=== PATIENT | female | born 1995 | race Caucasian/White ===

== ENCOUNTER 2020-11-09 16:38 | Emergency (ER) | payer OTHER, SELFPAY ==
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
[2020-11-09 16:46] VITALS: BP 118/67; PULSE 74; RESP 18; TEMP 36.4; O2SAT 100; O2SAT 98; BMI 20.5
--- NOTE | 2020-11-09 17:11 | PC.NURSE ---
HPD and photographer news at bedside. Pending primary eval
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
[2020-11-09 19:55] LABS: Glucose Urine UA NEG (NEG); Leukocyte Esterase Urine 1+ (NEG); Nitrite Urine NEG (NEG); Specific Gravity - Urine 1.025 (1.005-1.025); UACC Culture Trigger YES; Urine Blood NEG (NEG); Urine Ketones 5 MG/DL (NEG); Urine Protein NEG (NEG-TRACE)
[2020-11-09 20:03] LABS: Appearance Urine HAZY; Color Urine YELLOW
[2020-11-09 20:04] LABS: Bacteria Urine 4+ /LPF; Mucus Urine 1+ /LPF; Squamous Epithelial Cell Urine 1+ /LPF; UPreg QC Valid YES; Urine Pregnancy NEGATIVE (NEGATIVE); WBC Urine 30-49 /HPF (0-4)
[2020-11-09 20:13] LABS: Amphetamine Screen Urine Not Detected (Not Detect); Barbiturates, Urine Not Detected (Not Detect); Benzodiazepines Screen Urine POSITIVE (Not Detect); Cannabinoid Screen Urine POSITIVE (Not Detect); Cocaine Screen Urine POSITIVE (Not Detect); Opiate Screen Urine POSITIVE (Not Detect); Phencyclidine Screen Urine Not Detected (Not Detect)
[2020-11-09 20:16] LABS: MANUAL DIFF FLAG NO
[2020-11-09 20:17] LABS: Basophils Percent Auto 0.5 % (0-2); Eosinophils Absolute Auto 0.3 X10*3/uL (0.0-0.4); Eosinophils Percent Auto 3.4 % (0-4); Hematocrit 35.3 % (37-47); Hemoglobin 11.1 g/dl (12.0-16.0); Imm Gran Abs Auto 0.01 X10*3/uL (0.00-0.03); Imm Gran Pct Auto 0.1 % (0.0-0.4); Lymphocytes Absolute Auto 2.8 X10*3/uL (1.2-4.9); Lymphocytes Percent Auto 33.1 % (20-40); Mean Corpuscular HGB Conc 31.4 g/dl (31.0-35.0); Mean Corpuscular Hemoglobin 25.9 pg (27.0-33.0); Mean Corpuscular Volume 82.5 fL (80-98); Monocytes Absolute Auto 0.4 X10*3/uL (0.1-1.2); Monocytes Percent Auto 5.1 % (2-11); Neutrophils Percent Auto 57.8 % (45-73); Platelet Count 311 X10*3/uL (160-400); Red Blood Count 4.28 X10*6/uL (4.20-5.50); Red Cell Distribution Width 15.4 % (11.0-16.0); White Blood Count 8.6 X10*3/uL (4.8-10.8)
[2020-11-09 20:31] VITALS: BP 120/76; PULSE 75; RESP 18; TEMP 36.6; O2SAT 100
[2020-11-09 20:40] LABS: Alanine Aminotransferase 13 U/L (0-31); Albumin Level 4.1 g/dL (3.5-5.0); Alkaline Phosphatase 98 U/L (39-117); Anion Gap 13 (12-20); Aspartate Amino Transferase 14 U/L (5-31); Bilirubin Direct < 0.2 mg/dL (0.0-0.5); Bilirubin Total 0.3 mg/dL (0.0-1.0); Blood Urea Nitrogen 15 mg/dL (9-16); Calcium 9.2 mg/dL (8.4-10.2); Carbon Dioxide 26 mmol/L (22-29); Chloride 103 mmol/L (96-108); Creatinine Clr Calc Pharmacy 89.4; Estimated Glomerular Filt Rate > 60; Glucose Random 144 mg/dL (60-115); Lipase 5 U/L (8-78); Potassium 3.8 mmol/L (3.3-5.1); Sodium 138 mmol/L (135-145)
[2020-11-09 20:57] LABS: HIV AB/AG Nonreactive (Nonreactive)
[2020-11-09] MEDS: cefTRIAXone sodium 500 MG, Lidocaine HCl 1 % MPF 1 ML IM (21:23)
[2020-11-09] MEDS: levonorgestreL 1.5 MG TABLET PO (21:23)
[2020-11-09] MEDS: Dicyclomine HCl 10 MG CAPSULE 20 MG PO (21:24)
[2020-11-09 21:25] VITALS: BP 115/63; PULSE 67
[2020-11-09] MEDS: Azithromycin 500 MG TABLET 1000 MG PO (21:25)
[2020-11-09] MEDS: cloNIDine HCL 0.1 MG TABLET PO (21:25)
[2020-11-09] MEDS: LORazepam 1 MG TABLET 2 MG PO (21:25)
[2020-11-09] MEDS: metroNIDAZOLE 500 MG TABLET 2000 MG PO (21:27)
[2020-11-09] MEDS: Penicillin G Benzathine 2,400,000 UNIT/4 ML SYRINGE 2400000 UNIT IM (21:28)
[2020-11-09] MEDS: Post Exposure Medication Kit 1 KIT PO (21:29)
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
[2020-11-09] MEDS: Hepatitis B Imm Globulin 5 ML VIAL 3.3 ML IM (21:49)
[2020-11-09 22:20] VITALS: BP 126/56; PULSE 67; RESP 16; O2SAT 99
[2020-11-10 08:49] LABS: HBS Num1 258.45 mIU/mL (0-7.99); Hepatitis A Antibody IgM 0.31 Index (0-0.79); ~HepC Num1 14.42 S/CO (0.00-0.79); ~Hepatitis A Antibody IgM Nonreactive (Nonreactive); ~Hepatitis B Surface Antibody REACTIVE (Nonreactive); ~Hepatitis C Antibody Reactive (Nonreactive)
[2020-11-10 08:52] LABS: CT PCR DETECTED (Not Detect.); NG PCR DETECTED (Not Detect.)
[2020-11-10 09:02] LABS: Syphilis Screen Nonreactive (Nonreactive)
[2020-11-10 09:21] LABS: BV Int Neg Control Negative (Negative); BV Int Pos Control Positive (Positive)
[2020-11-10 09:53] LABS: HBsAGNum1 0.17 S/CO (0.00-0.99); HIV Num 1 0.05 S/CO (0.00-0.99); Hepatitis B Surface Antigen Negative (Negative)
[2020-11-10 11:08] LABS: HBc Num1 8.99 S/CO (0.00-0.79)
[2020-11-10 11:11] LABS: HBc Num2 10.07 S/CO; HBc Num3 10.17 S/CO; Hepatitis B Core Antibody Reactive (Nonreactive)
[2020-11-11 09:41] LABS: Hepatitis B Core Antibody IgM NON-REACTIVE (NON-REACTIVE)
== END 2020-11-09 22:42 ==
PROVIDERS: Nurse Practitioner Family; Emergency Provider Emergency Medicine
DX: T76.21XA Adult sexual abuse, suspected, initial encounter (principal); X58.XXXA Exposure to other specified factors, initial encounter; F19.10 Other psychoactive substance abuse, uncomplicated; Z11.3 Encounter for screening for infections with a predominantly sexual mode of transmission; Z20.5 Contact with and (suspected) exposure to viral hepatitis; I10 Essential (primary) hypertension
CPT/HCPCS: 36415; 70140; 70360; 80048; 80076; 80307; 81001; 81003; 81025; 83690; 85025; 86704; 86705; 86706; 86709; 86780; 86803; 87086; 87088; 87186; 87340; 87389; 87480; 87491; 87510; 87591; 87660; 90371; 90471; 90715; 96372; 99284; 99285; J0561; J0696

== ENCOUNTER 2021-03-11 19:03 | Emergency (ER) | payer OTHER, SELFPAY ==
[2021-03-11 19:22] VITALS: BP 173/83; PULSE 111; RESP 18; TEMP 36.9; O2SAT 100; BMI 20.5
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
[2021-03-11] MEDS: Ibuprofen 600 MG TABLET PO (22:58)
[2021-03-11] MEDS: cephALEXin 500 MG CAPSULE PO (22:58)
[2021-03-11] MEDS: Lidocaine HCl 2 % MPF 5 ML VIAL 10 ML SUBCUT (22:59)
[2021-03-11 23:02] VITALS: BP 137/77; PULSE 85; RESP 17; TEMP 37; O2SAT 98
== END 2021-03-11 23:24 | disposition home or self-care (01) ==
PROVIDERS: Emergency Provider Internal Medicine
DX: L02.415 Cutaneous abscess of right lower limb (principal); I10 Essential (primary) hypertension; F11.10 Opioid abuse, uncomplicated; Z79.899 Other long term (current) drug therapy
CPT/HCPCS: 10060; 99284

== ENCOUNTER 2021-03-14 18:05 | Emergency (ER) | payer OTHER, SELFPAY ==
[2021-03-14 18:26] VITALS: BP 145/78; PULSE 90; RESP 18; TEMP 36.6; O2SAT 100; BMI 20.5
--- NOTE | 2021-03-14 19:47 | PC.NURSE ---
PT NOT IN ROOM FOR EVAL. LWT.
== END 2021-03-14 19:50 | disposition left against medical advice (07) ==
PROVIDERS: Emergency Provider Emergency Medicine
DX: Z48.00 Encounter for change or removal of nonsurgical wound dressing (principal)
CPT/HCPCS: 99281; 99283

== ENCOUNTER 2021-06-09 12:55 | Emergency (ER) | payer OTHER, SELFPAY ==
--- NOTE | 2021-06-09 13:22 | PC.NURSE ---
[facility] staff assisted patient in rinsing eyes with milk. Registration at front office manager report that patient left shortly afterwards.
== END 2021-06-09 13:24 | disposition left against medical advice (07) ==
PROVIDERS: Emergency Provider Emergency Medicine
DX: H57.13 Ocular pain, bilateral (principal)

== ENCOUNTER 2021-06-25 00:32 | Emergency (ER) | payer OTHER, SELFPAY ==
[2021-06-25 00:49] VITALS: BP 155/105; PULSE 120; RESP 16; TEMP 36.4; O2SAT 100; BMI 21.2
== END 2021-06-25 01:20 | disposition left against medical advice (07) ==
PROVIDERS: Emergency Provider Emergency Medicine
DX: K08.89 Other specified disorders of teeth and supporting structures (principal)
CPT/HCPCS: 99281; 99282

== ENCOUNTER 2021-11-13 18:28 | Emergency (ER) | payer OTHER, SELFPAY ==
--- NOTE | ~2021-11-13 | XR_ITS ---
EXAMINATION: XR HIP, RIGHT CLINICAL INFORMATION: Fell 2 hours ago with inability to move leg COMPARISON: None TECHNIQUE: Single view pelvis with 4 additional views of the right hip. FINDINGS: Bones and soft tissues are normal. No fracture. Alignment is anatomic. Hip joint space is maintained. No pelvic fracture is seen. XR/XR hip RT min 2V IMPRESSION: Normal right hip. Normal left hip.
[2021-11-13 19:31] VITALS: BP 153/73; PULSE 92; RESP 16; O2SAT 99; BMI 25.7
[2021-11-13] MEDS: Ibuprofen 600 MG TABLET PO (19:36)
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
[2021-11-13] MEDS: diazePAM 5 MG TABLET PO (20:30)
[2021-11-13] MEDS: Ketorolac Tromethamine 60 MG/2 ML VIAL IM (20:30)
[2021-11-13 21:24] VITALS: BP 118/73; PULSE 88; RESP 16; O2SAT 98
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
== END 2021-11-13 22:33 | disposition home or self-care (01) ==
PROVIDERS: Emergency Provider Emergency Medicine
DX: M25.551 Pain in right hip (principal); M25.552 Pain in left hip; Z79.899 Other long term (current) drug therapy
CPT/HCPCS: 73502; 96372; 99284; J1885